=== PATIENT | female | born 1965 | race Caucasian/White ===

== ENCOUNTER → 2017-05-01 | Outpatient (CLI) | payer OTHER | LOC: BC 14:36 → RAD 14:36 | DX: Z12.31 Encounter for screening mammogram for malignant neoplasm of breast (principal); Z78.0 Asymptomatic menopausal state ==

== ENCOUNTER → 2017-06-21 | Outpatient (CLI) | payer OTHER | LOC: MRI 06-19 12:40 | DX: M47.27 Other spondylosis with radiculopathy, lumbosacral region (principal) ==